=== PATIENT | female | born 1950 | race Two or more races ===

== ENCOUNTER 2018-03-20 09:24 | Inpatient (IN) | payer MEDICARE, BC ==
[~2018-03-20] VITALS: Ht 177.8 cm; Wt 63.5 kg
[2018-03-20] MEDS ORDERED: ONDANSETRON HCL/PF 4 MG/2 ML VIAL ONE (09:58)
[2018-03-20 10:00] LABS: BASOPHILS % (AUTO) 0.5 % (0.0-2.0); EOSINOPHILS % (AUTO) 0.1 % (0.0-6.0); HEMATOCRIT 41 % (33-45); LYMPHOCYTES # (AUTO) 0.6 /CMM (0.8-4.8); LYMPHOCYTES % (AUTO) 15.6 % (20.0-44.0); MEAN CORPUSCULAR HGB CONC 35 g/dl (31.0-36.0); MEAN CORPUSCULAR VOLUME 94 fL (82-100); MONOCYTES # (AUTO) 0.4 /CMM (0.1-1.30); MONOCYTES % (AUTO) 9.1 % (2.0-12.0); NEUTROPHILS % (AUTO) 74.7 % (43.0-81.0); PLATELET COUNT (AUTO) 113 /CMM (150-450); RED BLOOD CELL COUNT(AUTO) 4.32 MIL/uL (4.0-5.2); WHITE BLOOD COUNT (AUTO) 4.1 K/uL (4.3-11.0)
[2018-03-20] MEDS ORDERED: IV NS 0.9% 500 ML BAG IV ONE (10:00)
[2018-03-20] MEDS ORDERED: ONDANSETRON HCL/PF 4 MG/2 ML VIAL IVP ONE (10:00)
[2018-03-20] MEDS ORDERED: DILTIAZEM HCL 25 MG IV ONE (10:10)
[2018-03-20 10:12] LABS: CALCIUM, SERUM 8.5 mg/dL (8.5-10.1); CREATININE 1.3 mg/dL (0.6-1.3); POTASSIUM 3.7 mmol/L (3.5-5.1)
[2018-03-20 10:18] LABS: ALBUMIN 3.3 g/dL (3.4-5.0); BILIRUBIN,DIRECT 0.1 mg/dL (0.0-0.2); BILIRUBIN,TOTAL 0.3 mg/dL (0.2-1.0); TOTAL PROTEIN, SERUM 6.7 g/dL (6.4-8.2)
[2018-03-20] MEDS ORDERED: DILTIAZEM HCL 50 MG IV IV ONE ×2 (10:30)
--- NOTE | 2018-03-20 10:47 | NUR ---
Report given to DOMINIC RN for continuity of care
--- NOTE | 2018-03-20 11:01 | NUR ---
TELE DOMINIC DATA ANALYTICS DEVELOPER NOTES RECEIVED PT FROM ER NURSE IN STABLE CONDITION. PT IS A/O X3. NO SOB OR ACUTE SIGNS OF DISTRESS NOTED. BREATHING IS EVEN AND UNLABORED. PT ON RA AND SATING WELL. SHE DENIES PAIN AT THIS TIME. LEFT ARM ABRASION NOTED FROM FALL SUSTAINED AT HOME. SURGICAL WOUND ALSO NOTED TO PATIENTS FOREHEAD FROM FACE LIFT SURGERY THIS PAST TUESDAY. PT CURRENTLY SR ON THE TELE MONITOR WITH A HR OF 60. SHE DENIES ANY CHEST PAIN. IV TO RIGHT AC NOTED TO BE PATENT AND INTACT. NO REDNESS OR SIGNS OF INFILTRATION NOTED. BELONGINGS VERIFIED BY FISH LIVER SORTER. PT ORIENTED TO ROOM AND USE OF CALL LIGHT. BED IN LOW LOCKED POSITION, SIDE RIALS UP X2, CALL LIGHT WIHTIN REACH. WILL CONTINUE TO MONITOR, BEGIN ADMISSION PROCESS, AND AWAIT FOR FURTHER MD ORDERS
[2018-03-20 12:00] VITALS: BP 104/44
[2018-03-20] MEDS ORDERED: IV NS 0.9% 1,000 ML IV PRN (12:23)
--- NOTE | 2018-03-20 12:23 | NUR ---
ORTHOSTATIC BP: STANDING 94/54 HR 80 SITTING 104/44 HR 68 SUPINE 93/[address] SAWYER MADE AWARE OF RESULTS
[2018-03-20] MEDS ORDERED: Z GUARD REMEDY 2 OZ OINT TP PRN (12:30)
[2018-03-20] MEDS ORDERED: HYDROCODONE/APAP 5/325MG 1 EACH TABLET PO PRN (12:30)
[2018-03-20] MEDS ORDERED: ONDANSETRON HCL/PF 4 MG/2 ML VIAL IVP PRN (12:30)
[2018-03-20] MEDS ORDERED: MAGNESIUM HYDROXIDE 30 ML UDC PO PRN (12:30)
[2018-03-20] MEDS ORDERED: ACETAMINOPHEN 325 MG TABLET PO PRN (12:30)
[2018-03-20] MEDS ORDERED: MAG HYDROX/AL HYDROX/SIMETH 30 ML UDC PO PRN (12:30)
[2018-03-20] MEDS ORDERED: ZOLPIDEM TARTRATE 5 MG TABLET PO PRN (12:30)
[2018-03-20 12:44] VITALS: BP 104/44
[2018-03-20 12:46] VITALS: BP_SYST 104; BP_SYST 93; BP_SYST 94; BP_DIAS 39; BP_DIAS 44; BP_DIAS 54
[2018-03-20] MEDS ORDERED: IOHEXOL-350 100 ML VIAL IV ONE (13:37)
[2018-03-20] MEDS ORDERED: CT SWABBABLE VALVE TRANS SET 1 EA INFUS.SET MC ONE (13:38)
[2018-03-20] MEDS: IV NS 0.9% 1,000 ML IV PRN ×2 (13:43→22:01)
--- NOTE | 2018-03-20 14:19 | NUR ---
TELE DOMINIC NOTES: ELEVATED TROPONIN PT'S TROPONIN IS CRITICALLY HIGH AT 0.613. DR. SANCHEZ AND DR. SAWYER BOTH MADE AWARE. NO NEW ORDERS AT THIS TIME. PT DENIES ANY CHEST PAIN. SHE REMAINS SR ON THE TELE MONITOR. WILL CONTINUE TO MONITOR
[2018-03-20 16:00] VITALS: BP 108/68
[2018-03-20 16:16] LABS: BILIRUBIN,TOTAL 0.3 mg/dL (0.2-1.0); CALCIUM, SERUM 8.2 mg/dL (8.5-10.1); CREATININE 1.1 mg/dL (0.6-1.3); POTASSIUM 3.6 mmol/L (3.5-5.1); TOTAL PROTEIN, SERUM 6.1 g/dL (6.4-8.2)
--- NOTE | 2018-03-20 18:10 | NUR ---
PRESS OPERATOR CARBON BLOCKS CLOSING NOTES PT REMAINS STABLE.. ALL NEEDS MET DURING SHIFT AND ORDERS CARRIED OUT ACCORDINGLY. SHE YU ANY PAIN AT THIS TIME. PT TOLERATING NS INFUSION WELL. PT REMAINS SR ON THE TELE MONITOR WITH A CURRENT HR OF 63. SAFETY MEASURES REMAIN IN PLACE. WILL ENDORSE TO NIGHTSHIFT RN FOR RITA
--- NOTE | 2018-03-20 18:56 | NUR ---
MEDICAL EDITOR NOTES: CRITICAL TROPONIN DR SAWYER PAGED THROUGH EXCHANGE LINE TO NOTIFY OF PT'S INCREASE TROPONIN. AWAITING CALL BACK
--- NOTE | 2018-03-20 19:38 | NUR ---
NO CALLBACK FROM DR SAWYER. CALL PLACED TO DR. SANCHEZ THROUGH [employer] EXCHANGE. AWAITING CALL BACK. WILL ENDORSE TO NIGHTSLB RN FOR F/U
--- NOTE | 2018-03-20 19:50 | NUR ---
DOMINIC INITIAL NOTES RECEIVED PATIENT AWAKE, ALERT AND ORIENTED. DENIES ANY PAIN AND DISCOMFORT AT THIS TIME, NO CHEST PAIN. ORTHOSTATIC BP CHECKED, NON REMARKABLE, NOTED, PATIENT VERBALIZES FEELING DIZZY UPON GETTING UP. FALL AND SAFETY PRECAUTIONS INITIATED. MED RECON CHECKED WITH PATIENT, WILL UPDATE MEDRECON ACCORDINGLY. IVF HELD PER PATIENT'S REQUESTS, PATIENT WITH GOOD PO INTAKE. PATIENT'S NEEDS ANTICIPATED AND MET. CALL LIGHT IN REACH. WILL F/UP WITH CRITICAL VALUE REPORT.
[2018-03-20 20:00] VITALS: BP_SYST 109; BP_SYST 88; BP_SYST 96; BP_DIAS 50; BP_DIAS 53; BP_DIAS 62
--- NOTE | 2018-03-20 20:12 | NUR ---
DOMINIC RN NOTE CALLED AND SPOKE WITH DR. SAWYER AND REPORTED THE PATIENT'S TROPONIN VALUE OF 1.412. DR. SAWYER WITH NNO AT THIS TIME. NOTED.
[2018-03-20] MEDS ORDERED: ESTR0.5T PO (20:33)
[2018-03-20] MEDS ORDERED: LOSA100T31 PO (20:33)
[2018-03-21] VITALS: BP 102/52
--- NOTE | 2018-03-21 00:50 | NUR ---
RN NOTE DR. BLEDSOE MADE AWARE OF THE PATIENT'S US ABD RESULT WITH NOTED ABNORMAL GALLBLADDER, SUSPICIOUS FOR GALLBLADDER NEOPLASM OR INFECTION/ABSCESS. NNO AT THIS TIME, AM TEAM TO F/UP.
[2018-03-21 04:00] VITALS: BP 111/56
[2018-03-21 06:21] LABS: BASOPHILS % (AUTO) 0.3 % (0.0-2.0); EOSINOPHILS % (AUTO) 0.4 % (0.0-6.0); HEMATOCRIT 35 % (33-45); HEMOGLOBIN 12.1 g/dL (11.5-14.8); LYMPHOCYTES % (AUTO) 24.1 % (20.0-44.0); MEAN CORPUSCULAR HGB CONC 34 g/dl (31.0-36.0); MEAN CORPUSCULAR VOLUME 93 fL (82-100); MONOCYTES # (AUTO) 0.5 /CMM (0.1-1.30); MONOCYTES % (AUTO) 10.7 % (2.0-12.0); NEUTROPHILS # (AUTO) 2.8 /CMM (1.8-8.9); NEUTROPHILS % (AUTO) 64.5 % (43.0-81.0); PLATELET COUNT (AUTO) 101 /CMM (150-450); RED BLOOD CELL COUNT(AUTO) 3.81 MIL/uL (4.0-5.2); WHITE BLOOD COUNT (AUTO) 4.3 K/uL (4.3-11.0)
--- NOTE | 2018-03-21 06:22 | NUR ---
RN CLOSING NOTES PATIENT WITH NO ACUTE DISTRESS AND CHANGE IN CONDITION OBSERVED OVERNIGHT. REMAINS SR AT 60-70s. EPISODE OF SINUS KINZA IN THE 50s WHEN PATIENT IS ASLEEP. PATIENT TOLERATED IVF OVERNIGHT, HOWEVER PATIENT REFUSING IVF IN THE AM AT 0400, PATIENT COMPLIANT WITH INCREASED ORAL FLUID INTAKE, WITH GOOD UO. ORTHOSTATIC PRECAUTIONS REINFORCED TO THE PATIENT. NEEDS ANTICIPATED AND MET. CALL LIGHT IN REACH. WILL ENDORSE ACCORDINGLY.
[2018-03-21 06:43] LABS: ALBUMIN 2.7 g/dL (3.4-5.0); BILIRUBIN,TOTAL 0.2 mg/dL (0.2-1.0); CREATININE 0.9 mg/dL (0.6-1.3); MAGNESIUM 1.9 mg/dL (1.8-2.4); PHOSPHORUS 3.4 mg/dL (2.5-4.9); POTASSIUM 3.4 mmol/L (3.5-5.1); TOTAL PROTEIN, SERUM 5.7 g/dL (6.4-8.2)
[2018-03-21 06:44] LABS: THYROID STIMULATING HORMONE 3.258 uIU/mL (0.358-3.74)
--- NOTE | 2018-03-21 07:10 | NUR ---
WORKERS COMPENSATION CLAIMS ADJUSTER OPENING NOTES RECEIVED PT LYING ON BED.ALERT/ORIENTED X4.ON TELE HR IS 58 WITH SR.ON ROOM AIR,TOLERATING WELL.NO SOB AND ACUTE DISTRESS NOTED.CAN AMBULATE WITH MINIMAL SUPERVISION.IV LINE IS ON RIGHT AC G20,SITE IS CLEAN,DRY AND INTACT.NO INFILTRATION NOTED.REFUSED TO START IV FLUIDS.PREFER TO DRINK WELL.SAFETY IS MAINTAINED AT ALL TIMES.BED IS IN LOW POSITION AND LOCKED.CALL LIGHT IS WITHIN REACH.WILL CONTINUE TO MONITOR THE PT CLOSELY.
[2018-03-21 08:00] VITALS: BP 122/62
--- NOTE | 2018-03-21 10:00 | NUR ---
PLANTING SUPERVISOR NOTES ,CARDIOLOGY SEEN THE PT ND ORDERED CT ANGIO W/3DIMAGE.NEW ORDERS NOTED AND CARRIED OUT.
[2018-03-21] MEDS: POTASSIUM CHLORIDE 20 MEQ TAB.PRT.SR PO SCH ×3 (10:51→12:22)
[2018-03-21] MEDS ORDERED: CT SWABBABLE VALVE TRANS SET 1 EA INFUS.SET MC ONE (11:01)
[2018-03-21] MEDS ORDERED: IOHEXOL-350 100 ML VIAL IV ONE (11:01)
[2018-03-21] MEDS ORDERED: IV NS 0.9% 250 ML IV ONE (11:01)
--- NOTE | 2018-03-21 11:40 | NUR ---
PLASTICS FABRICATOR AND ASSEMBLER NOTES PT PICKED TO CT ANGIOGRAM OF THE HEART.IV G 18 DONE BY THE RADIOLOGIST IN RIGHT AC.NO COMPLICATIONS NOTED.CONSENT SIGNED BY THE PT.
[2018-03-21 12:00] VITALS: BP 110/51
--- NOTE | 2018-03-21 12:05 | NUR ---
SENIOR POWER SCHEDULER NOTES PT CAME BACK FROM CT ANGIO OF THE HEART.TOLERATED WELL.VITAL SIGNS ARE WNL.NO COMPLICATIONS NOTED.
[2018-03-21 16:00] VITALS: BP 124/61
--- NOTE | 2018-03-21 18:00 | NUR ---
WHIZZER HANDLOOP DRIER OPERATOR NOTES PT IS READY TO DISCHARGE TO HOME.ALL THE D/C MEDICATIONS AND PROCEDURES,TREATMENT HAS EXPLAINED TO THE PT AND VERBALIZED UNDERSTOOD.SKIN ASSESSMENT IS DONE AND PHOTOS HAS TAKEN.VITAL SIGNS ARE CHECKED AND RECORDED.PT IS AMBULATED TO THE PARKING LOT WITH HER DAUGHTER TO HOME.NO COMPLICATIONS NOTED.
== END 2018-03-21 18:00 | disposition home or self-care (01) | DRG 280 ==
LOC: ER 09:25 → ICUOV 11:05 → TELE-TD 11:20 → TELE1 20:11
PROVIDERS: ADMIT Internal Medicine; ATTEND Student in an Organized Health Care Education/Training Program
DX: I48.0 Paroxysmal atrial fibrillation (principal); N17.0 Acute kidney failure with tubular necrosis; I21.4 Non-ST elevation (NSTEMI) myocardial infarction; K80.20 Calculus of gallbladder without cholecystitis without obstruction; Z85.828 Personal history of other malignant neoplasm of skin
CPT/HCPCS: 36415; 71045-TC; 75574; 76700-TC; 80048-TC; 80053-TC; 80061-TC; 80076-TC; 83735-TC; 84100-TC; 84443-TC; 84484-TC; 85025-TC; 85730-TC; 86850-TC; 87081-TC; 93307-TC; A6402; G0378; J2405; J3490; J7030; J7040; J7050; Q9967